=== PATIENT | male | born 1960 | race Caucasian/White ===

== ENCOUNTER 2019-04-08 09:15 | Day surgery (SDC) | payer MEDICAID ==
[~2019-04-08] VITALS: Ht 162.6 cm; Wt 55.3 kg
[2019-04-08] MEDS ORDERED: LIDOCAINE 2% 100 MG/5 ML UJET TP ONE (11:18)
[2019-04-08] MEDS ORDERED: fentaNYL 0.05 MG/ML VIAL ONE (11:18)
[2019-04-08] MEDS ORDERED: fentaNYL 0.05 MG/ML VIAL IVP ONE (12:25)
== END 2019-04-08 12:25 | disposition home or self-care (01) ==
LOC: MDS 09:15 → MTU 09:53 → MDS 12:25
PROVIDERS: ATTEND Internal Medicine Gastroenterology
DX: K62.5 Hemorrhage of anus and rectum (principal); I10 Essential (primary) hypertension; E78.5 Hyperlipidemia, unspecified; F17.210 Nicotine dependence, cigarettes, uncomplicated; Z79.899 Other long term (current) drug therapy
CPT/HCPCS: 45378; J3010